=== PATIENT | male | born 1960 | race Caucasian/White ===

== ENCOUNTER → 2016-11-02 | Outpatient (CLI) | payer BC ==
[~2016-11-02] MED LIST: ASP81TEC PO; DIPH1TAB45 PO; LIRA0.6P SQ; LISINOPRIL; METFORMIN; METO100T5 PO; METOPROLOL; NIAC250T17 PO; OMG1KC PO; PRILOSEC; SIMV40TA4 PO; SIMVASTATIN; TAMS0.4C2 PO; VICTOZA
--- OUTSIDE RECORDS SUMMARY | 2016-11-02 13:53 | XMS REPORT ---
Author JOSE D Callejas [facility] eClinicalWorks Address Unknown Phone Unavailable Care Team Providers Care [facility] [employer] Name Role Phone JOSE D NJ CP Unavailable Allergies No Known Allergies Problems Problem Type Condition Code Onset Dates Condition Status Problem Type 2 diabetes mellitus without complication E11.9 Active Problem Essential hypertension I10 Active Problem Diabetic polyneuropathy associated with type 2 diabetes mellitus E11.42 Active Problem Obesity, unspecified obesity severity, unspecified obesity type E66.9 Active Problem Other seasonal allergic rhinitis J30.2 Active Problem Hyperlipidemia, unspecified hyperlipidemia type E78.5 Active Problem Periodic limb movement disorder G47.61 Active Medications Medication Code System Code Instructions Start Date End Date Status Dosage Tamsulosin HCl [facility] [id number] 0.4 MG Orally Once a day 1 capsule 30 minutes after the same meal each day Results No Known Results Summary Purpose eClinicalWorks Submission
== END ==
LOC: RAD 13:51
PROVIDERS: ATTEND Orthopaedic Surgery Orthopaedic Surgery of the Spine
DX: M54.10 Radiculopathy, site unspecified (principal)

== ENCOUNTER 2017-11-04 12:38 | Observation (INO) | payer BC ==
[~2017-11-04] VITALS: Ht 190.5 cm; Wt 122.5 kg
[2017-11-04] VITALS (13 sets, daily range): BP systolic 105–180; BP diastolic 76–101
[2017-11-04] MEDS ORDERED: ASPIRIN 81 MG CHEW (CHILDREN'S ASA) ONE (12:45)
[2017-11-04] MEDS ORDERED: NS IV 1000 ML 1,000 ML ONE (12:48)
[2017-11-04] MEDS ORDERED: NS IV 1000 ML 1,000 ML IV ONE (12:54)
[2017-11-04] MEDS ORDERED: ASPIRIN 325 MG (5 GR) TABLET PO ONE (13:00)
[2017-11-04 13:05] LABS: BASOPHILS % (AUTO) 1 % (0-10); EOSINOPHILS # (AUTO) 0.2 10^3/uL (0.0-0.3); EOSINOPHILS % (AUTO) 3 % (0-10); HEMATOCRIT 48 % (40-54); HEMOGLOBIN 17.2 G/DL (13.3-17.7); LYMPHOCYTES % (AUTO) 24 % (12-44); MEAN CORPUSCULAR HEMOGLOBIN 31 PG (25-34); MEAN CORPUSCULAR HGB CONC 36 G/DL (32-36); MEAN CORPUSCULAR VOLUME 88 FL (80-99); MEAN PLATELET VOLUME 10.9 FL (7.4-10.4); MONOCYTES # (AUTO) 0.7 X 10^3 (0.0-1.0); MONOCYTES % (AUTO) 8 % (0-12); NEUTROPHILS # (AUTO) 5.4 X 10^3 (1.8-7.8); NEUTROPHILS % (AUTO) 65 % (42-75); PLATELET COUNT 174 10^3/uL (130-400); RED BLOOD COUNT 5.49 10^6/uL (4.35-5.85); RED CELL DISTRIBUTION WIDTH 12.5 % (10.0-14.5); WHITE BLOOD COUNT 8.3 10^3/uL (4.3-11.0)
[2017-11-04 13:12] LABS: PROTHROMBIN TIME PATIENT 13.1 SEC (12.2-14.7)
--- NOTE | 2017-11-04 13:16 | ED Chest Pain ---
General Chief Complaint: Chest Pain Stated Complaint: CP Nursing Triage Note: BOBBY STATES THAT HE STARTED HAVING A FLUTTERING FEELING IN HIS CHEST STARTING THIS MORNING AROUND 0800. HE HAS HAD A HEART CATH IN THE PAST THAT WAS NEGATIVE. HE HAD AN EPISODE OF LIGHTHEADEDNESS WELL. Nursing Sepsis Screen: No Definite Risk Source: patient Exam Limitations: no limitations History of Present Illness Time seen by provider: 12:41 Initial Comments Here with report of having fluttering feeling and discomfort in his chest today while at work. This started around 8 o'clock. He had another episode later and actually almost passed out. He was able to get to that without passing out but was not feeling well and elected to come to the emergency department appropriately. Denies nausea or vomiting. Denies diaphoresis. Reports that his blood sugar has been reasonably under control. He has not checked his blood sugar today. Timing/Duration: 4-6 hours Severity/Quality: moderate, other (flutter and abnormal feeling.) Location: central Radiation: no radiation Activities at Onset: none Prior CP/Workup: echocardiography, stress test ASA po RIGHT OF WAY BUYER: No NTG SL RIGHT OF WAY BUYER: No Associated Symptoms: No abdominal pain, No back pain, No fever/chills, No nausea/vomiting, shortness of breath, weakness Allergies and Home Medications Allergies Coded Allergies: No Known Drug Allergies (Unverified , 11/22/10) Home Medications Aspirin 81 Mg Tabec, 81 MG PO DAILY, (Reported) Liraglutide 0.6 Mg/0.1 Ml Pen.injctr, 1.8 MG SQ DAILY, (Reported) Metoprolol Succinate 100 Mg Tab.sr.24h, 25 MG PO DAILY, (Reported) Niacin 250 Mg Tablet, 250 MG PO DAILY, (Reported) [place] 3 Polyunsat Fatty Acids 1,000 Mg Cap, 1,000 MG PO DAILY, (Reported) Simvastatin 40 Mg Tablet, 40 MG PO DAILY, (Reported) Tamsulosin Hcl 0.4 Mg Cap.sr.24h, 0.4 MG PO DAILY, (Reported) [Metformin] , 1,000 MG DAILY, (Reported) Hold until 07/16/12 Review of Systems Constitutional: see HPI, No chills, No fever EENTM: No Symptoms Reported Respiratory: No Symptoms Reported Cardiovascular: See HPI, Chest Pain, Irregular Heart Rate, Palpitations Gastrointestinal: Denies Abdominal Pain, Denies Diarrhea, Denies Nausea, Denies Vomiting Genitourinary: No Symptoms Reported Musculoskeletal: no symptoms reported Skin: no symptoms reported All Other Systems Reviewed Negative Unless Noted: Yes Past Mxuftpp-Qzlxik-Hgzmet Hx Patient Social History Alcohol Use: Denies Use Recreational Drug Use: No Smoking Status: Never a Smoker 2nd Hand Smoke Exposure: No Recent Foreign Travel: No Contact w/Someone Who Travel: No Recent Infectious Disease Expo: No Recent Hopitalizations: No Immunizations Up To Date Date of Influenza Vaccine: Jul 28, 2017 Seasonal Allergies Seasonal Allergies: No Surgeries History of Surgeries: Yes (appendix out ) Respiratory History of Respiratory Disorde: No Cardiovascular History of Cardiac Disorders: Yes Neurological History of Neurological Disord: No Reproductive System Hx Reproductive Disorders: No Genitourinary History of Genitourinary Disor: No Gastrointestinal History of Gastrointestinal Di: No Musculoskeletal History of Musculoskeletal Dis: Yes Endocrine History of Endocrine Disorders: Yes Psychosocial History of Psychiatric Problem: No Integumentary History of Skin or Integumenta: No Blood Transfusions History of Blood Disorders: No Reviewed Nursing Assessment Reviewed/Agree w Nursing PMH: Yes Family Medical History Significant Family History: No Pertinent Family Hx Physical Exam Vital Signs Vital Sign - Last 12Hours 11/04/17 11/04/17 12:40 12:41 Temp 97.8 Pulse 90 Resp 18 B/P (MAP) 155/101 (119) Pulse Ox 95 O2 Delivery Room Air O2 Flow Rate 2.0 Capillary Refill : Less Than 3 Seconds General Appearance: No Apparent Distress, WD/WN HEENT: PERRL/EOMI, Pharynx Normal Neck: Non Tender, Supple Respiratory: Lungs Clear, Normal Breath Sounds Cardiovascular: Regular Rate, Rhythm, No Murmur Gastrointestinal: Non Tender, Soft Extremity: Normal Inspection, Normal Range of Motion Neurologic/Psychiatric: Alert, Oriented x3 Skin: Normal Color, Warm/Dry Progress/Results/Core Measures Results/Orders Lab Results Laboratory Tests Test 11/04/17 12:45 11/04/17 12:49 Range/Units White Blood Count 8.3 4.3-11.0 10^3/uL Red Blood Count 5.49 4.35-5.85 10^6/uL Hemoglobin 17.2 13.3-17.7 G/DL Hematocrit 48 40-54 % Mean Corpuscular Volume 88 80-99 FL Mean Corpuscular Hemoglobin 31 25-34 PG Mean Corpuscular Hemoglobin Concent 36 32-36 G/DL Red Cell Distribution Width 12.5 10.0-14.5 % Platelet Count 174 130-400 10^3/uL Mean Platelet Volume 10.9 H 7.4-10.4 FL Neutrophils (%) (Auto) 65 42-75 % Lymphocytes (%) (Auto) 24 12-44 % Monocytes (%) (Auto) 8 0-12 % Eosinophils (%) (Auto) 3 0-10 % Basophils (%) (Auto) 1 0-10 % Neutrophils # (Auto) 5.4 1.8-7.8 X 10^3 Lymphocytes # (Auto) 2.0 1.0-4.0 X 10^3 Monocytes # (Auto) 0.7 0.0-1.0 X 10^3 Eosinophils # (Auto) 0.2 0.0-0.3 10^3/uL Basophils # (Auto) 0.0 0.0-0.1 10^3/uL Prothrombin Time 13.1 12.2-14.7 SEC INR Comment 1.0 0.8-1.4 Activated Partial Thromboplast Time 30 24-35 SEC D-Dimer < 0.27 0.00-0.49 UG/ML Sodium Level 136 135-145 MMOL/L Potassium Level 4.2 3.6-5.0 MMOL/L Chloride Level 102 98-107 MMOL/L Carbon Dioxide Level 22 21-32 MMOL/L Anion Gap 12 5-14 MMOL/L Blood Urea Nitrogen 14 7-18 MG/DL Creatinine 1.07 0.60-1.30 MG/DL Estimat Glomerular Filtration Rate > 60 BUN/Creatinine Ratio 13 Glucose Level 226 H 70-105 MG/DL Calcium Level 9.2 8.5-10.1 MG/DL Magnesium Level 2.2 1.8-2.4 MG/DL Total Bilirubin 0.5 0.1-1.0 MG/DL Aspartate Amino Transf (AST/SGOT) 27 5-34 U/L Alanine Aminotransferase (ALT/SGPT) 56 H 0-55 U/L Alkaline Phosphatase 84 40-136 U/L Myoglobin 63.3 10.0-92.0 NG/ML Troponin I < 0.30 <0.30 NG/ML Total Protein 7.9 6.4-8.2 GM/DL Albumin 4.6 H 3.2-4.5 GM/DL Lipase 27 8-78 U/L Glucometer 146 H 70-110 MG/DL My Orders Orders - JABIER NOYOLA MD Aspirin Chewable Tablet (Baby Aspirin Ch (11/04/17 12:45) Ns Iv 1000 Ml (Sodium Chloride 0.9%) (11/04/17 12:48) Cbc With Automated Diff (11/04/17 12:54) Magnesium (11/04/17 12:54) Chest 1 View, Ap/Pa Only (11/04/17 12:54) Ekg Tracing (11/04/17 12:54) Cardiac Profile 1 (11/04/17 12:54) Comprehensive Metabolic Panel (11/04/17 12:54) Myoglobin Serum (11/04/17 12:54) Protime With Inr (11/04/17 12:54) Partial Thromboplastin Time (11/04/17 12:54) O2 (11/04/17 12:54) Monitor-Rhythm Ecg Trace Only (11/04/17 12:54) Lipid Panel (11/05/17 06:00) Aspirin Tablet (Aspirin Tablet) (11/04/17 13:00) Saline Lock/Iv-Start (11/04/17 12:54) Lipase (11/04/17 12:54) Fibrin Degradation Products (11/04/17 12:54) Saline Lock/Iv-Start (11/04/17 12:54) Ns Iv 1000 Ml (Sodium Chloride 0.9%) (11/04/17 12:54) Clopidogrel Tablet (Plavix Tablet) (11/04/17 14:15) Metoprolol Succinate (Xl) Tab (Toprol Xl (11/04/17 14:15) Vital Signs/I&O Vital Sign - Last 12Hours 11/04/17 11/04/17 11/04/17 12:40 12:41 12:42 Temp 97.8 Pulse 90 Resp 18 B/P (MAP) 155/101 (119) Pulse Ox 95 99 O2 Delivery Room Air Nasal Cannula Nasal Cannula O2 Flow Rate 2.0 2.00 Blood Pressure Mean: 119 Progress Note : Progress Note Seen and evaluated. IV, labs, EKG, chest x-ray, ASA 324 mg by mouth ordered. Monitor patient. 1358: Patient is having intermittent periods of this chest flutter ordered not feeling well. I think it would be important to observe him especially given his diabetes history. I did discuss the case with Dr. Carmelita Trent and she accepts patient for admission, observation status. I did discuss the case with Dr. Donis, on-call for cardiology and he says patient for consult. He recommends Toprol 25 mg by mouth of the XL version and Plavix 300 mg by mouth. Findings and concerns discussed with patient and family who agree to plan. Admit observation status. ECG Initial ECG Impression Date: Nov 04, 2017 Initial ECG Impression Time: 12:41 Initial ECG Rate: 91 Initial ECG Rhythm: Normal Sinus Comment Sinus rhythm with normal axis. No evidence of ST elevation HI. T-wave inversion in the lateral leads that is changed from previous of 13 July 2012. Interpreted by me. Diagnostic Imaging Diagonstic Imaging: Xray Plain Films/CT/US/NM/MRI: chest Comments VIA [facility], [facility]. [place], [place] NAME: DASHA SCRUGGS MED REC#: [id number] PT STATUS: REG ER : 1960 PHYSICIAN: JABIER NOYOLA MD ADMIT DATE: 11/04/17/ER Draft Date of Exam:11/04/17 CHEST 1 VIEW, AP/PA ONLY INDICATION: Heart flutter. TIME OF EXAMINATION: 1328 hours. TECHNIQUE/COMPARISON: A portable AP upright view of the chest was obtained with comparison made to the study of 07/11/2012. FINDINGS: The heart size and pulmonary vascularity are within normal limits. The lungs are clear bilaterally. IMPRESSION: Unremarkable chest. Dictated on workstation # [id number] Dict: 11/04/17 1336 Trans: 11/04/17 1340 [id number] Interpreted by: DARWIN TERRAZAS MD Electronically signed by: Departure Communication (Admissions) Time/Spoke to Admitting Phy: 13:58 Time/Spoke to Consulting Phy: 14:14 Impression Impression: Primary Impression: Chest pain Qualified Codes: R07.9 - Chest pain, unspecified Disposition: ADMITTED INPATIENT Condition: Stable Admissions Decision to Admit Reason: Admit from ER (General) Decision to Admit/Date: Nov 04, 2017 Time/Decision to Admit Time: 13:58 Departure-Patient Inst. Referrals: JOSE D NJ DO (PCP/Family) Primary Care Physician JABIER NOYOLA MD Nov 04, 2017 13:16
[2017-11-04 13:23] LABS: ALANINE AMINOTRANSFERASE 56 U/L (0-55); ALBUMIN 4.6 GM/DL (3.2-4.5); ALKALINE PHOSPHATASE 84 U/L (40-136); BILIRUBIN,TOTAL 0.5 MG/DL (0.1-1.0); BUN/CREATININE RATIO 13; CALCIUM 9.2 MG/DL (8.5-10.1); CARBON DIOXIDE 22 MMOL/L (21-32); CHLORIDE 102 MMOL/L (98-107); CREATININE SERUM 1.07 MG/DL (0.60-1.30); GFR ESTIMATED > 60; GLUCOSE 226 MG/DL (70-105); LIPASE 27 U/L (8-78); MAGNESIUM 2.2 MG/DL (1.8-2.4); POTASSIUM 4.2 MMOL/L (3.6-5.0); SODIUM 136 MMOL/L (135-145); TOTAL PROTEIN 7.9 GM/DL (6.4-8.2)
[2017-11-04 13:29] LABS: MYOGLOBIN SERUM 63.3 NG/ML (10.0-92.0)
--- NOTE | 2017-11-04 13:40 | Diagnostic Imaging Report ---
INDICATION: Heart flutter. TIME OF EXAMINATION: 1328 hours. TECHNIQUE/COMPARISON: A portable AP upright view of the chest was obtained with comparison made to the study of 07/11/2012. FINDINGS: The heart size and pulmonary vascularity are within normal limits. The lungs are clear bilaterally. IMPRESSION: Unremarkable chest. Dictated by: Dictated on workstation # [id number]
[2017-11-04] MEDS ORDERED: CLOPIDOGREL 300 MG (PLAVIX) TABLET PO ONE (14:15)
[2017-11-04] MEDS ORDERED: CANA300T PO (14:39)
[2017-11-04] MEDS ORDERED: METF1000 PO (14:39)
[2017-11-04] MEDS ORDERED: METO-333 PO (14:39)
[2017-11-04] MEDS ORDERED: TAMS0.4C2 PO (14:39)
[2017-11-04] MEDS ORDERED: LIRA0.6P3 SC (14:39)
[2017-11-04] MEDS ORDERED: FLUT16SP22 NSEACH (14:39)
[2017-11-04] MEDS ORDERED: GLIM4TAB PO (14:39)
[2017-11-04] MEDS ORDERED: morphine INJ 4 MG/ML 1 ML (VIAL/SYRINGE) IV PRN (15:30)
[2017-11-04] MEDS ORDERED: CATHETER FLUSH 10 ML SYR IV PRN (15:30)
[2017-11-04] MEDS ORDERED: NITROGLYCERIN 0.4 MG SL TABS BTL 25'S SL PRN (15:30)
[2017-11-04] MEDS ORDERED: ASPI-983 PO (15:37)
[2017-11-04] MEDS ORDERED: NIAC1CAP12 PO (15:37)
[2017-11-04] MEDS ORDERED: OMG1KC PO (15:37)
--- NOTE | 2017-11-04 15:39 | Consultation-Cardiology ---
HPI-Cardiology Cardiology Consultation: Date of Consultation 11/04/17 Date of Admission Attending Physician Carmelita Trent MD Admitting Physician Zenobia Coleman DO Consulting Physician Gonzales DONIS MD HPI: Time Seen by Provider: 14:45 Chief Complaint: Chest pain, palpitations, dizziness This is a 57-year-old gentleman who has history of type II diabetes, hypertension, hyperlipidemia, family history of CAD. Father had an NV. Nonsmoker. He presents with an episode of fluttery feeling in the chest with a dull ache as well as near syncopal episode. The chest discomfort is nonradiating. It is substernal. It is mild. There is no exacerbating or relieving factors. He did not have any further near syncope. He denies any episodes of syncope. Denies any shortness of breath, orthopnea or PND. Denies any significant lower extremity swelling. Review of Systems-Cardiology Review of Systems Constitutional: No As described under HPI, No no symptoms reported, No chills, No fever, No lightheadedness, No malaise, No tiredness, No weight loss, No weight gain, No other Eyes: No As described under HPI, No no symptoms reported, No blindness, No blurred vision, No contact lenses, No drainage, No decreased acuity, No foreign body sensation, No glasses, No inflammation, No pain, No photophobia, No previous injury, No shadows, No tunnel vision, No other, No vision change Ears/Nose/Throat: No As described under HPI, No no symptoms reported, No chronic hearing loss, No epistaxis, No ear discharge, No ear pain, No loose teeth, No mouth pain, No mouth swelling, No nasal drainage, No nose pain, No recent hearing loss, No throat pain, No throat swelling, No ulcerations, No other Respiratory: No no symptoms reported, No As described under HPI, No cough, No orthopnea, No shortness of breath, No SOB with excertion, No SOB at rest, No stridor, No wheezing, No other Cardiovascular: chest pain, palpitations, syncope Gastrointestinal: No no symptoms reported, No As described under HPI, No abdomen distended, No abdominal pain, No blood streaked bowels, No constipation , No diarrhea, No difficulty swallowing, No nausea, No poor appetite, No poor fluid intake, No rectal bleeding, No vomiting, No other, No nausea/vomiting/ diarrhea, No stool coloration changes Genitourinary: No no symptoms reported, No As described under HPI, No burning, No dysuria, No discharge, No frequency, No flank pain, No hematuria, No incontinence, No pain, No urgency, No other, No urine frequency changes, No urine coloration changes Musculoskeletal: No no symptoms reported, No As describe under HPI, No back pain, No gout, No joint pain, No joint swelling, No muscle pain, No muscle stiffness, No neck pain, No other Skin: No no symptoms reported, No As described under HPI, No change in color, No change in hair/nails, No dryness, No lesions, No lumps, No rash, No other, No skin related problems, No ulcerations, No rash on exposed areas, No ulcerations on exposed areas Psychiatric/Neurological: No no symptoms reported, No As described under HPI, No anxiety, No depression, No emotional problems, No headache, No numbness, No pre-existing deficit, No seizure, No tingling, No tremors, No weakness, No other , No focal weakness, No syncope Hematologic: No no symptoms reported, No As described under HPI, No anemia, No blood clots, No easy bleeding, No easy bruising, No swollen glands, No other, No bleeding abnormalities All Other Systems Reviewed Negative Unless Noted: Yes IQB-Gjzxsi-Gmhtss Hx Patient Social History Alcohol Use: Denies Use Recreational Drug Use: No Smoking Status: Never a Smoker 2nd Hand Smoke Exposure: No Recent Foreign Travel: No Recent Infectious Disease Expo: No Hospitalization with Isolation: Denies Immunizations Up To Date Date of Influenza Vaccine: Jul 28, 2017 Past Medical History PMH As described under Assessment. Allergies and Home Medications Allergies Coded Allergies: No Known Drug Allergies (Unverified , 11/22/10) Home Medications Aspirin 81 Mg Tablet.dr, 81 MG PO HS, (Reported) Canagliflozin 300 Mg Tablet, 300 MG PO DAILY, (Reported) Fluticasone Propionate 16 Gm [place].susp, 2 SPRAYS NSEACH HS, (Reported) Glimepiride 4 Mg Tablet, 4 MG PO HS, (Reported) Liraglutide 0.6 Mg/0.1 Ml Pen.injctr, 1.8 MG SC DAILY, (Reported) Metformin HCl 1,000 Mg Tablet, 1,000 MG PO 1200,2200, (Reported) Metoprolol Tartrate 25 Mg Tablet, 25 MG PO HS, (Reported) Niacin (Inositol Niacinate) 400 Mg Capsule, 400 MG PO HS, (Reported) [place] 3 Polyunsat Fatty Acids 1,000 Mg Cap, 1,000 MG PO HS, (Reported) Tamsulosin HCl 0.4 Mg Cap.er.24h, 0.8 MG PO HS, (Reported) TAKES 2 (0.4MG) CAPSULES Physical Exam-Cardiology Physical Exam Vital Signs/I&O Vital Sign - Last 12Hours 11/04/17 11/04/17 11/04/17 12:40 12:41 12:42 Temp 97.8 Pulse 90 Resp 18 B/P (MAP) 155/101 (119) Pulse Ox 95 99 O2 Delivery Room Air Nasal Cannula Nasal Cannula O2 Flow Rate 2.0 2.00 Capillary Refill : Less Than 3 Seconds Constitutional: No appears stated age, No AAO x 3, No apparent distress, No PERRL, No well-developed, No well-nourished, No other HEENT: No PERRL, No normal ENT inspection, No TMs normal, No pharynx normal, No scleral icterus (R), No scleral icterus (L), No pale conjunctivae (R), No pale conjunctivae (L), No photophobia, No TM abnormal (R), No TM abnormal (L), No pharyngeal erythema, No tonsillar exudate, No other, No discharge, No EOMI, No hearing is well preserved, No hard of hearing, No oral hygience is good, No ulceration, No xanthelasmas are seen Neck: No non-tender, No full range of motion, No supple, No normal inspection, No carotid bruit, No limited range of motion, No lymphadenopathy (R), No lymphadenopathy (L), No tender lateral, No tender midline, No thyromegaly, No other, No carotid pulses are 2 + bilaterally, No with good upstrokes Respiratory: No accessory muscle use, No respiratory distress, No chest tender , No chest expansion is symmetric, No chest is bilaterally symmetric, No lungs clear to percussion, No lungs clear to auscultation, No crackles, No rhonchi, No rales, No stridor, No wheezing, No pleural rub, No other Cardiovascular: No regular rate-rhythm, No irregularly irregular, No extra beats, No parasternal heave is noted, No JVD, No edema, No bradycardia, No tachycardia, No point of maximal impulse, No cardiac thrills are palpable, No S1 and S2, No gallop/S3, No gallop/S4, No diastolic murmur, No systolic murmur, No friction rub, No click, No other Gastrointestinal: No tender, No soft, No round, No distended, No pulsatile mass , No organomegaly, No guarding, No rebound, No tenderness, No hernia, No mass, No audible bowel sounds, No abnormal bowel sounds, No abdominal bruits, No spleenomegaly, No other Rectal: deferred Extremities: No normal range of motion, No non-tender, No normal inspection, No pedal edema, No calf tenderness, No normal capillary refill, No pelvis stable , No calf tenderness, No inflammation, No pedal edema, No slow capillary refill , No swelling, No other, No abrasion, No clubbing, No cyanosis, No ecchymosis, No laceration, No no lower extremity edema bilateral, No significant edema, No tenderness, No wound Neurologic/Psychiatric: No certified massage therapist II-XII nml as tested, No no motor/sensory deficits, No alert, No normal mood/affect, No oriented x 3, No abnormal cerebellar tests, No abnormal certified massage therapist II-XII, No abnormal gait, No aphasia, No EOM palsy, No facial droop, No motor weakness, No sensory deficit, No depressed affect, No disoriented x 3, No other, No grossly intact, No power is 5/5 both on sides Skin: No normal color, No warm/dry, No cyanosis, No cool, No diaphoresis, No damp, No ecchymosis, No jaundice, No mottled, No pallor, No rash, No tattoos/ piercings, No ulcerations, No rash on exposed areas, No ulcerations on exposed areas, No other Lymphatic: No no adenopathy, No axilla node tender (R), No axilla node tender ( L), No inguinal node tender (R), No inguinal node tender (L), No other Data Review Labs Laboratory Tests 11/04/17 12:45: White Blood Count 8.3, Red Blood Count 5.49, Hemoglobin 17.2, Hematocrit 48, Mean Corpuscular Volume 88, Mean Corpuscular Hemoglobin 31, Mean Corpuscular Hemoglobin Concent 36, Red Cell Distribution Width 12.5, Platelet Count 174, Mean Platelet Volume 10.9H, Neutrophils (%) (Auto) 65, Lymphocytes (%) (Auto) 24 , Monocytes (%) (Auto) 8, Eosinophils (%) (Auto) 3, Basophils (%) (Auto) 1, Neutrophils # (Auto) 5.4, Lymphocytes # (Auto) 2.0, Monocytes # (Auto) 0.7, Eosinophils # (Auto) 0.2, Basophils # (Auto) 0.0, Prothrombin Time 13.1, INR Comment 1.0, Activated Partial Thromboplast Time 30, D-Dimer < 0.27, Sodium Level 136, Potassium Level 4.2, Chloride Level 102, Carbon Dioxide Level 22, Anion Gap 12, Blood Urea Nitrogen 14, Creatinine 1.07, Estimat Glomerular Filtration Rate > 60, BUN/Creatinine Ratio 13, Glucose Level 226H, Calcium Level 9.2, Magnesium Level 2.2, Total Bilirubin 0.5, Aspartate Amino Transf (AST /SGOT) 27, Alanine Aminotransferase (ALT/SGPT) 56H, Alkaline Phosphatase 84, Myoglobin 63.3, Troponin I < 0.30, Total Protein 7.9, Albumin 4.6H, Lipase 27 11/04/17 12:49: Glucometer 146H ECG Impression ECG Initial ECG Rhythm: Normal Sinus Initial ECG Impression: Nonspecific Changes A/P-Cardiology Assessment/Admission Diagnosis 1. Near syncope. 2. Palpitations. 3. Chest discomfort. 4. Diabetes. 5. Hypertension. 6. Hyperlipidemia. Plan 1. Near syncope. Continue telemetry. May require an event monitor before discharge. 2. Palpitations. See number 1. 3. Chest discomfort. Elevated risk factors for significant CAD. We will do serial troponins. EKG did not reveal any significant ST-T wave abnormalities. Plavix 300mg bolus was given. If serial troponins are negative we'll perform pharmacological nuclear stress test tomorrow. If troponin is positive we will perform coronary angiography. Patient understands. We will request an echocardiogram. 4. Diabetes. I spoke about the association of diabetes with elevated risk of CAD. 5. Hypertension. Metoprolol and lisinopril. 6. Hyperlipidemia. Needs lipid profile and will need to start atorvastatin. Thank you for your consultation. Please call me if you have any questions. Eugene Donis MD, FACP, FACC, FSCAI, FHRS, CCDS Interventional Cardiology Cardiac Electrophysiology Vascular Medicine and Endovascular Interventions Clinical Quality Measures AMI/AHF: ASA po Prior to arrival: Gonzales Black MD Nov 04, 2017 15:39
[2017-11-04] MEDS ORDERED: RT-ALBUTEROL SULF 2.5 MG/3 ML PRE-MIX VIAL INH PRN (16:00)
[2017-11-04] MEDS ORDERED: ALFUZOSIN HCL 10 MG TAB (UROXATRAL) PO SCH (18:00)
[2017-11-04] MEDS ORDERED: PATIENT MAY USE OWN MEDS, ALL MC SCH (18:15)
[2017-11-04] MEDS: NS IV 1000 ML 1,000 ML IV SCH (18:27)
[2017-11-04 19:38] LABS: MYOGLOBIN SERUM 53.8 NG/ML (10.0-92.0)
[2017-11-04] MEDS: METFORMIN 1,000 MG TABLET PO SCH (20:20)
[2017-11-04] MEDS ORDERED: FLUTICASONE NASAL SPRAY (FLONASE) 16 GM BTL NS SCH (21:00)
[2017-11-04] MEDS ORDERED: ASPIRIN E.C. 81 MG (ECOTRIN) TAB PO SCH (21:00)
[2017-11-04] MEDS ORDERED: NIACIN ER (NIASPAN) 500 MG TAB PO SCH (21:00)
[2017-11-04] MEDS ORDERED: TAMSULOSIN 0.4 MG CAPSULE PO SCH (21:00)
[2017-11-04] MEDS ORDERED: GLIMEPIRIDE 4 MG (AMARYL) TAB PO SCH (21:00)
[2017-11-04] MEDS ORDERED: FISH OIL 1200 MG PO SCH (21:00)
[2017-11-04] MEDS ORDERED: meTOprolol TARTRATE 25 MG (LOPRESSOR) TABLET PO SCH (21:00)
--- OUTSIDE RECORDS SUMMARY | 2017-11-04 21:28 | XMS REPORT ---
Author Author VAMSI THOMAS Organization [facility] Address [address] [place] [address] Care Team Providers Care Armor Reconnaissance Vehicle Driver Name Role Phone VAMSI THOMAS Unavailable PROBLEMS Type Condition ICD9-CM Code [id number] Code Onset Dates Condition Status SNOMED Code Problem Essential hypertension I10 Active 53490664 Problem Type 2 diabetes mellitus without complication E11.9 Active 54152218 Problem Increased urinary frequency R35.0 Active 720048010 Problem Diabetic polyneuropathy associated with type 2 diabetes mellitus E11.42 Active 14605568 Problem Periodic limb movement disorder G47.61 Active 333502067 Problem Other seasonal allergic rhinitis J30.2 Active 583670981 Problem Obesity, unspecified obesity severity, unspecified obesity type E66.9 Active 583619747 Problem Hyperlipidemia, unspecified hyperlipidemia type E78.5 Active 31181704 ALLERGIES Substance Reaction Event Type Date Status Simvastatin muscle pain Drug Allergy Nov, Active SOCIAL HISTORY Never Assessed PLAN OF CARE Activity Details Follow Up 3 Months with René Reason: VITAL SIGNS Height 73 in 2016-12-08 Weight 285.4 lbs 2016-12-08 Temperature 97.3 degrees Fahrenheit 2016-12-08 Heart Rate 70 bpm 2016-12-08 Respiratory Rate 14 2016-12-08 BMI 37.65 kg/m2 2016-12-08 Blood pressure systolic 138 mmHg 2016-12-08 Blood pressure diastolic 78 mmHg 2016-12-08 MEDICATIONS Medication Instructions Dosage Frequency Start Date End Date Duration Status Glucocard Expression Test - test blood sugar 12h May, Active Trintellix 5 MG Orally Once a day 1 tablet 24h Active Glucocard Expression Monitor w/Device test blood sugar 12h May, Active Tamsulosin HCl 0.4 MG Orally Once a day 2 capsule 30 minutes after the same meal each day 24h 9 Nov, 2017 90 days Active Victoza 18 MG/3ML sq daily INJECT 1.8 MG 24h 30 Active Aspirin Adult Low Strength 81 MG Orally Once a day 1 tablet 24h Active Prilosec OTC 20 MG Orally Once a day 1 tablet 24h Active Glimepiride 4 MG TAKE ONE TABLET BY MOUTH DAILY 30 Active Metoprolol Tartrate 25 MG Orally Once a day 1 TABLET BY ORAL ROUTE 1 TIME PER DAY AT BEDTIME (NO NOT CRUSH OR CHEW) 24h 90 Active Fish Oil 1000 MG Orally Once a day 1 capsule 24h Active Fluticasone Propionate 50 MCG/ACT USE TWO SPRAYS IN EACH NOSTRIL DAILY 30 Active Metformin HCl 1000 MG TAKE ONE TABLET BY MOUTH TWICE DAILY WITH MEALS 30 Active RESULTS Name Result Date Reference Range A1C (IN HOUSE) 2016-12-08 A1C IN HOUSE 8.3 4.3 - 5.6 % Previous A1c 8.0 Lot [id number] Exp date 08/2018 PROCEDURES Procedure Date Ordered Result Body Site GLYCATED HEMOGLOBIN TEST Dec 08, 2016 IMMUNIZATIONS No Known Immunizations MEDICAL (GENERAL) HISTORY Type Description Date Medical History hypertension Medical History hyperlipidemia Medical History coronary artery disease Medical History type II diabetes-dx'd 04/2010 Medical History benign prostatic hyperplasia (BPH) Medical History anhedonia s/p of spouse Surgical History appendectomy Surgical History Septum Repair
--- OUTSIDE RECORDS SUMMARY | 2017-11-04 21:28 | XMS REPORT ---
Author Author JOSE D [place] [facility] Address [address] [place] [address] Care Team Providers Care Document Image Technician Name Role Phone JOSE D [place] Unavailable PROBLEMS Type Condition ICD9-CM Code [id number] Code Onset Dates Condition Status SNOMED Code Problem Obesity, unspecified obesity severity, unspecified obesity type E66.9 Active 746074083 Problem Other seasonal allergic rhinitis J30.2 Active 516281199 Problem Increased urinary frequency R35.0 Active 436390101 Problem Diabetic polyneuropathy associated with type 2 diabetes mellitus E11.42 Active 74522631 Problem Hyperlipidemia, unspecified hyperlipidemia type E78.5 Active 10351889 Problem Periodic limb movement disorder G47.61 Active 821652388 Problem Type 2 diabetes mellitus without complication E11.9 Active 94575357 Problem Essential hypertension I10 Active 91699012 ALLERGIES Unknown Allergies SOCIAL HISTORY No smoking Hx information available PLAN OF CARE VITAL SIGNS MEDICATIONS Medication Instructions Dosage Frequency Start Date End Date Duration Status Fluticasone Propionate 50 MCG/ACT USE TWO SPRAYS IN EACH NOSTRIL DAILY 30 Active RESULTS No Results PROCEDURES No Known procedures IMMUNIZATIONS No Known Immunizations
--- OUTSIDE RECORDS SUMMARY | 2017-11-04 21:28 | XMS REPORT ---
Author Author VAMSI THOMAS Organization [facility] Address [address] [place] [address] Care Team Providers Care Quality Process Auditor Name Role Phone VAMSI THOMAS Unavailable PROBLEMS Type Condition ICD9-CM Code [id number] Code Onset Dates Condition Status SNOMED Code Problem Essential hypertension I10 Active 54942805 Problem Type 2 diabetes mellitus without complication E11.9 Active 55079811 Problem Increased urinary frequency R35.0 Active 453488424 Problem Diabetic polyneuropathy associated with type 2 diabetes mellitus E11.42 Active 39113720 Problem Periodic limb movement disorder G47.61 Active 736577964 Problem Other seasonal allergic rhinitis J30.2 Active 716120150 Problem Obesity, unspecified obesity severity, unspecified obesity type E66.9 Active 120698363 Problem Hyperlipidemia, unspecified hyperlipidemia type E78.5 Active 47200240 ALLERGIES No Information SOCIAL HISTORY Never Assessed PLAN OF CARE VITAL SIGNS MEDICATIONS Medication Instructions Dosage Frequency Start Date End Date Duration Status Invokana 100 mg Orally Once a day 1 tablet 24h February, Active RESULTS No Results PROCEDURES No Known procedures IMMUNIZATIONS No Known Immunizations MEDICAL (GENERAL) HISTORY Type Description Date Medical History hypertension Medical History hyperlipidemia Medical History coronary artery disease Medical History type II diabetes-dx'd 04/2010 Medical History benign prostatic hyperplasia (BPH) Medical History anhedonia s/p of spouse Surgical History appendectomy Surgical History Septum Repair
--- OUTSIDE RECORDS SUMMARY | 2017-11-04 21:28 | XMS REPORT ---
Author Author ANALISA KENDALL [facility] eClinicalWorks Address Unknown Phone Unavailable Care Team Providers Care Bee Robber Name Role Phone ANALISA KENDALL CP Unavailable Allergies No Known Allergies Problems Problem Type Condition Code Onset Dates Condition Status Assessment Encounter for immunization Z23 Active Problem Type 2 diabetes mellitus without complication E11.9 Active Problem Essential hypertension I10 Active Problem Diabetic polyneuropathy associated with type 2 diabetes mellitus E11.42 Active Problem Obesity, unspecified obesity severity, unspecified obesity type E66.9 Active Problem Other seasonal allergic rhinitis J30.2 Active Problem Hyperlipidemia, unspecified hyperlipidemia type E78.5 Active Problem Periodic limb movement disorder G47.61 Active Medications No Known Medications Procedures Procedure Coding System Code Date SINGLE IMMUNIZATION ADMIN CPT-4 39787 Jul 27, 2016 FLUARIX QUAD P-FREE 3 AND UP .50 2015 CPT-4 65699 Jul 27, 2016 Results No Known Results Immunizations Vaccine Administration Date FLUARIX QUAD P-FREE 3 AND UP .50 2015Jul 27, 2016 Summary Purpose eClinicalWorks Submission
--- OUTSIDE RECORDS SUMMARY | 2017-11-04 21:28 | XMS REPORT ---
Author Author JOSE D NJ [facility] Address Unknown Phone Unavailable Care Team Providers Care Miniature Set Constructor Name Role Phone JOSE D [place] CP Unavailable Allergies No Known Allergies Problems Problem Type Condition Code Onset Dates Condition Status Problem Essential hypertension I10 Active Problem Hyperlipidemia, unspecified hyperlipidemia type E78.5 Active Problem Type 2 diabetes mellitus without complication E11.9 Active Problem Other seasonal allergic rhinitis J30.2 Active Problem Periodic limb movement disorder G47.61 Active Problem Obesity, unspecified obesity severity, unspecified obesity type E66.9 Active Medications Medication Code System Code Instructions Start Date End Date Status Dosage Glucocard Expression Test [facility] 8317-692826 - 2 times a day May 28, 2016 test blood sugar Glucocard Expression Monitor [facility] 8317-166761 w/Device 2 times a day May test blood sugar Results No Known Results Summary Purpose eClinicalWorks Submission
--- OUTSIDE RECORDS SUMMARY | 2017-11-04 21:28 | XMS REPORT ---
Author JOSE D Callejas [facility] e[employer] Address Unknown Phone Unavailable Care Team Providers Care Geosciences Professor Name Role Phone JOSE D [place] CP [...] Date End Date Status Dosage Tamsulosin HCl [facility] 33225892515 0.4 MG Orally Once a day 1 capsule 30 minutes after the same meal each day Results No Known Results Summary Purpose eClinicalWorks Submission
--- OUTSIDE RECORDS SUMMARY | 2017-11-04 21:28 | XMS REPORT ---
Author Author JOSE D NJ [facility] Address [address] [place] [address] Care Team Providers Care Aviation Electrical Technician Name Role Phone JOSE D [place] Unavailable PROBLEMS Type Condition ICD9-CM Code [id number] Code Onset Dates Condition Status SNOMED Code Problem Essential hypertension I10 Active 98368596 Problem Type 2 diabetes mellitus without complication E11.9 Active 39674511 Problem Increased urinary frequency R35.0 Active 497610842 Problem Diabetic polyneuropathy associated with type 2 diabetes mellitus E11.42 Active 66133808 Problem Periodic limb movement disorder G47.61 Active 300139631 Problem Other seasonal allergic rhinitis J30.2 Active 057420226 Problem Obesity, unspecified obesity severity, unspecified obesity type E66.9 Active 820914953 Problem Hyperlipidemia, unspecified hyperlipidemia type E78.5 Active 26284878 ALLERGIES Unknown Allergies SOCIAL HISTORY No smoking Hx information available PLAN OF CARE VITAL SIGNS MEDICATIONS Unknown Medications RESULTS No Results PROCEDURES No Known procedures IMMUNIZATIONS No Known Immunizations
--- OUTSIDE RECORDS SUMMARY | 2017-11-04 21:28 | XMS REPORT | Clinical Summary ---
Author Author [facility] Address Unknown Phone Unavailable Allergies Not on File Current Medications Not on file Active Problems Not on file Social History Tobacco Use Types Packs/Day Years Used Date Never Assessed Sex Assigned at Date Recorded Not on file Plan of Treatment Health Maintenance Due Date Last Done Comments Hepatitis C Screening 1962 DTaP,Tdap,and Td Vaccines 1981 (1 - Tdap) Colon Cancer Screening 2012 Influenza Vaccine (#1) 2017 Results Not on filefrom Last 3 Months
--- OUTSIDE RECORDS SUMMARY | 2017-11-04 21:29 | XMS REPORT ---
Author JOSE D Callejas [facility] eClinicalWorks Address Unknown Phone Unavailable Care Team Providers Care Orthopedic Shoe Fitter Name Role Phone JOSE D [place] CP Unavailable Allergies, Adverse Reactions, Alerts Substance Reaction Event Type Simvastatin muscle pain Drug Allergy Problems Problem Type Condition Code Onset Dates Condition Status Assessment Essential hypertension I10 Active Assessment Type 2 diabetes mellitus without complication E11.9 Active Assessment Mild episode of recurrent major depressive disorder F33.0 Active Assessment Diabetic polyneuropathy associated with type 2 diabetes mellitus E11.42 Active Assessment Hyperlipidemia, unspecified hyperlipidemia type E78.5 Active Problem [...] Date End Date Status Dosage Glucocard Expression Monitor [facility] 8317-788313 w/Device 2 times a day May test blood sugar Fish Oil [facility] [address]-01 1000 MG Orally Once a day 1 capsule Trintellix [facility] [address]-42 5 MG Orally Once a day 1 tablet Metoprolol Tartrate [facility] 13872403946 25 MG Orally Once a day 1 TABLET BY ORAL ROUTE 1 TIME PER DAY AT BEDTIME (NO NOT CRUSH OR CHEW) Prilosec OTC [facility] 74941-50711 20 MG Orally Once a day 1 tablet BD U/F Mini Pen Needle [facility] 47914294958 0 USE DIRECTED Victoza [facility] 70283777359 18 MG/3ML sq daily INJECT 1.8 MG Metformin HCl [facility] 34708425318 1000 MG TAKE ONE TABLET BY MOUTH TWICE DAILY WITH MEALS Glucocard Expression Test [facility] 8317-705584 - 2 times a day May 28, 2016 test blood sugar Glimepiride [facility] 02952738067 4 MG TAKE ONE TABLET BY MOUTH DAILY Fluticasone Propionate [facility] 91034662370 50 MCG/ACT USE TWO SPRAYS IN EACH NOSTRIL DAILY Niacin [facility] [address]-65 500 mg May 23, 2012 take 1 capsules by Oral route 1 time per day at bedtime Aspirin Adult Low Strength [facility] [address]-59 81 MG Orally Once a day 1 tablet Tamsulosin HCl [facility] 95076636832 0.4 MG Orally Once a day 1 capsule 30 minutes after the same meal each day Procedures Procedure Coding System Code Date COMPREHEN METABOLIC PANEL CPT-4 35568 Aug 03, 2016 ASSAY THYROID STIM HORMONE CPT-4 10462 Aug 03, 2016 GLYCATED HEMOGLOBIN TEST CPT-4 95775 Aug 03, 2016 LIPID PANEL CPT-4 65170 Aug 03, 2016 COMPLETE CBC W/AUTO DIFF WBC CPT-4 05473 Aug 03, 2016 Office Visit, Est Pt., Level 4 CPT-4 34817 Aug 03, 2016 VENIPUNCT, ROUTINE* CPT-4 56130 Aug 03, 2016 Vital Signs Date/Time: Aug 03, 2016 Cardiac Monitoring Heart Rate 86 bpm Weight 287.2 lbs Height 73 in BMI 37.89 Index Blood Pressure Diastolic 83 mmHg Blood Pressure Systolic 132 mmHg Results Name Result Date Reference Range Unit Abnormality Flag ROUTINE VENIPUNCTURE A1C (IN HOUSE) ----Exp date [id number] ----Previous A1c 7.0 20160803 ----Lot [id number] ----A1C IN HOUSE 8.0 [id number] 4.3 - 5.6 % Summary Purpose eClinicalWorks Submission
--- OUTSIDE RECORDS SUMMARY | 2017-11-04 21:30 | XMS REPORT | Continuity of Care Document ---
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 8-78 Capillary blood glucose measurement by glucometer (mass/volume) - 11/04/17 12: 49 Capillary blood glucose measurement by glucometer (mass/volume) 146 mg/dL 70-110 Serum or plasma troponin i.cardiac measurement (mass/volume) - 11/04/17 19:00 Serum or plasma troponin i.cardiac measurement (mass/volume) < ng/ mL <0.30 Myoglobin, serum - 11/04/17 19:00 Myoglobin, serum 53.8 ng/mL 10.0-92.0 Encounters ACCT No. Visit Date/Time Discharge Status Pt. Type Provider Facility Loc./Unit Complaint [id number] 11/02/2016 13:51:00 11/02/2016 23:59:59 CLS Outpatient ARIELLA DE JESUS MD [facility] RAD RADIOCULOPATHY [id number] 01/24/2014 21:06:00 01/25/2014 06:15:00 DIS Outpatient JOSE D NJ DO [facility] SLEEP HTN,EXCESSIVE DAYTIME SLEEPINESS [id number] 11/04/2017 13:05:00 Document Registration [id number] 07/11/2012 08:33:00 Document Registration [id number] 11/22/2010 05:37:00 Document Registration [id number] 07/04/2010 10:56:00 Document Registration [id number] 07/02/2010 08:08:00 Document Registration [id number] 11/05/2014 10:49:00 11/05/2014 23:59:59 CLS Outpatient NJ DOJOSE D [id number] 11/02/2014 09:04:00 11/02/2014 23:59:59 CLS Outpatient NJ DOJOSE D [id number] 10/01/2014 15:17:00 10/01/2014 23:59:59 CLS Outpatient NJ DOJOSE D [id number] 08/10/2014 14:17:00 08/10/2014 23:59:59 CLS Outpatient ANALISA KENDALL APRN [id number] 03/26/2014 09:34:00 03/26/2014 23:59:59 CLS Outpatient NJ DOJOSE D [id number] 11/22/2013 10:11:00 11/22/2013 23:59:59 CLS Outpatient NJ DOJOSE D [id number] 11/21/2013 07:53:00 11/21/2013 23:59:59 CLS Outpatient NJ DOJOSE D [id number] 08/29/2013 09:29:00 08/29/2013 23:59:59 CLS Outpatient ANALISA KENDALL APRN [id number] 08/11/2013 14:48:00 08/11/2013 23:59:59 CLS Outpatient ANALISA KENDALL APRN [id number] 07/26/2013 09:38:00 07/26/2013 23:59:59 CLS Outpatient NJ DOJOSE D [id number] 10/03/2012 10:02:00 10/03/2012 23:59:59 CLS Outpatient ANALISA KENDALL APRN [id number] 09/29/2012 07:52:00 09/29/2012 23:59:59 CLS Outpatient NJ DO, JOSE D Garber [id number] 08/24/2012 09:50:00 08/24/2012 23:59:59 CLS Outpatient NJ DOJOSE D [id number] 04/04/2013 09:03:00 Document Registration [id number] 02/20/2013 10:58:00 Document Registration
--- OUTSIDE RECORDS SUMMARY | 2017-11-04 21:44 | XMS REPORT | Clinical Summary ---
Author Author [facility] Address Unknown Phone Unavailable Allergies Not on [...]
--- OUTSIDE RECORDS SUMMARY | 2017-11-04 21:45 | XMS REPORT | Continuity of Care Document ---
Author Author [facility] Organization [facility] Address Unknown Phone Unavailable Allergies Active Description Code Type Severity Reaction Onset Reported/Identified Relationship to Patient Clinical Status Yes No Known Drug Allergies [id number] Drug Allergy Unknown N/A 11/22/2010 Medications There is no data. Problems Date Dx Coded Attending Type Code Diagnosis Diagnosed By 04/30/2010 JOSE D NJ DO 250.02 Diabetes Mellitus Poorly Controlled 04/30/2010 JOSE D NJ DO 401.1 ESSENTIAL HYPERTENSION BENIGN 04/30/2010 JOSE D NJ DO K 787.91 Diarrhea 04/30/2010 RAJOTTE RESEARCH DEVELOPMENT MANAGER, ANALISA A 250.02 Diabetes Mellitus Poorly Controlled 04/30/2010 RAJOTTE RESEARCH DEVELOPMENT MANAGER, ANALISA A 401.1 ESSENTIAL HYPERTENSION BENIGN 04/30/2010 RAJOTTE RESEARCH DEVELOPMENT MANAGER, ANALISA A 787.91 Diarrhea 04/30/2010 250.02 Diabetes Mellitus Poorly Controlled 04/30/2010 401.1 ESSENTIAL HYPERTENSION BENIGN 04/30/2010 787.91 Diarrhea 04/30/2010 250.02 Diabetes Mellitus Poorly Controlled 04/30/2010 401.1 ESSENTIAL HYPERTENSION BENIGN 04/30/2010 787.91 Diarrhea 04/30/2010 JOSE D NJ DO K 250.02 Diabetes Mellitus Poorly Controlled 04/30/2010 JOSE D NJ DO 401.1 ESSENTIAL HYPERTENSION BENIGN 04/30/2010 JOSE D NJ DO K 787.91 Diarrhea 04/30/2010 RAJOTTE RESEARCH DEVELOPMENT MANAGER, ANALISA A 250.02 Diabetes Mellitus Poorly Controlled 04/30/2010 RAJOTTE RESEARCH DEVELOPMENT MANAGER, ANALISA A 401.1 ESSENTIAL HYPERTENSION BENIGN 04/30/2010 RAJOTTE RESEARCH DEVELOPMENT MANAGER, ANALISA A 787.91 Diarrhea 04/30/2010 RAJOTTE RESEARCH DEVELOPMENT MANAGER, ANALISA A 250.02 Diabetes Mellitus Poorly Controlled 04/30/2010 RAJOTTE RESEARCH DEVELOPMENT MANAGER, ANALISA A 401.1 ESSENTIAL HYPERTENSION BENIGN 04/30/2010 RAJOTTE RESEARCH DEVELOPMENT MANAGER, ANALISA A 787.91 Diarrhea 04/30/2010 NJ DO, [...] JOSE D K 787.91 Diarrhea 04/30/2010 ENOCH RESEARCH DEVELOPMENT MANAGER, ANALISA A 250.02 Diabetes Mellitus Poorly Controlled 04/30/2010 ENOCH CARVER ANALISA A 401.1 ESSENTIAL HYPERTENSION BENIGN 04/30/2010 RAJSHREEE RESEARCH DEVELOPMENT MANAGER, ANALISA A 787.91 Diarrhea 04/30/2010 NJ DO, [...] CARVER ANALISA A 272.4 DYSLIPIDEMIA 05/14/2010 RAJOTTE RESEARCH DEVELOPMENT MANAGER, ANALISA A 272.4 DYSLIPIDEMIA 05/14/2010 NJ DO, JOSE D K 272.4 DYSLIPIDEMIA 05/14/2010 NJ DO, JOSE D K 272.4 DYSLIPIDEMIA 05/14/2010 NJ DO, JOSE D K 272.4 DYSLIPIDEMIA 05/14/2010 NJ DO, JOSE D K 272.4 DYSLIPIDEMIA 05/14/2010 ENOCH RESEARCH DEVELOPMENT MANAGER, ANALISA A 272.4 DYSLIPIDEMIA 05/14/2010 NJ DO, [...] K 250.00 DIABETES MELLITUS TYPE 2 05/15/2010 NEOCH CARVER, ANALISA A 250.00 DIABETES MELLITUS TYPE [...] CARVER ANALISA A 414.01 CAD 06/25/2010 RAJOTTE RESEARCH DEVELOPMENT MANAGER, ANALISA A 414.01 CAD 06/25/2010 NJ DO, [...] V58.69 taking high-risk medication 09/24/2010 NJ DO, JSOE D K V58.69 taking high-risk medication 09/24/2010 NJ DO, JOSE D K V58.69 taking high-risk medication 11/22/2010 Ot 276.51 DEHYDRATION 11/22/2010 Ot 787.91 DIARRHEA 09/22/2011 NJ DO JOSE D K 461.9 Sinusitis Acute 09/22/2011 NJ DO, JOSE D K 788.64 delays in starting urination (hesitancy) 09/22/2011 NJ DO, JOSE D K V76.44 Psa 09/22/2011 RAJOTTE RESEARCH DEVELOPMENT MANAGER, ANALISA A 461.9 Sinusitis Acute 09/22/2011 RAJOTTE RESEARCH DEVELOPMENT MANAGER, ANALISA A 788.64 delays in starting urination (hesitancy) 09/22/2011 RAJOTTE RESEARCH DEVELOPMENT MANAGER, ANALISA A V76.44 Psa 09/22/2011 461.9 Sinusitis Acute 09/22/2011 788.64 delays in starting urination (hesitancy) 09/22/2011 V76.44 Psa 09/22/2011 461.9 Sinusitis Acute 09/22/2011 788.64 delays in starting urination (hesitancy) 09/22/2011 V76.44 Psa 09/22/2011 NJ DO, JOSE D K 461.9 Sinusitis Acute 09/22/2011 NJ DO, JOSE D K 788.64 delays in starting urination (hesitancy) 09/22/2011 NJ DO, JOSE D K V76.44 Psa 09/22/2011 RAJOTTE RESEARCH DEVELOPMENT MANAGER, ANALISA A 461.9 Sinusitis Acute 09/22/2011 RAJOTTE RESEARCH DEVELOPMENT MANAGER, ANALISA A 788.64 delays in starting urination (hesitancy) 09/22/2011 RAJOTTE RESEARCH DEVELOPMENT MANAGER, ANALISA A V76.44 Psa 09/22/2011 RAJOTTE RESEARCH DEVELOPMENT MANAGER, ANALISA A 461.9 Sinusitis Acute 09/22/2011 RAJOTTE RESEARCH DEVELOPMENT MANAGER, AANLISA A 788.64 delays in starting urination (hesitancy) 09/22/2011 RAJOTTE RESEARCH DEVELOPMENT MANAGER, ANALISA A V76.44 Psa 09/22/2011 NJ DO, [...] JOSE D K V76.44 Psa 09/22/2011 RAJOTTE RESEARCH DEVELOPMENT MANAGER, ANALISA A 461.9 Sinusitis Acute 09/22/2011 RAJOTTE RESEARCH DEVELOPMENT MANAGER, ANALISA A 788.64 delays in starting urination (hesitancy) 09/22/2011 RAJOTTE RESEARCH DEVELOPMENT MANAGER, ANALISA A V76.44 Psa 09/22/2011 NJ DO, [...] K 600.00 BENIGN PROSTATIC HYPERTROPHY 09/28/2011 RAJOTTE RESEARCH DEVELOPMENT MANAGER, ANALISA A 600.00 BENIGN PROSTATIC HYPERTROPHY 09/28/2011 600.00 BENIGN PROSTATIC HYPERTROPHY 09/28/2011 600.00 BENIGN PROSTATIC HYPERTROPHY 09/28/2011 NJ DO, JOSE D K 600.00 BENIGN PROSTATIC HYPERTROPHY 09/28/2011 RAJOTTE RESEARCH DEVELOPMENT MANAGER, ANALISA A 600.00 BENIGN PROSTATIC HYPERTROPHY 09/28/2011 RAJOTTE RESEARCH DEVELOPMENT MANAGER, ANALISA A 600.00 BENIGN PROSTATIC HYPERTROPHY 09/28/2011 [...] D K 239.2 Skin Neoplam 07/04/2012 ROMINAE RESEARCH DEVELOPMENT MANAGER, ANALISA A 239.2 Skin Neoplam 07/04/2012 239.2 [...] D K 729.5 ARM PAIN 08/05/2012 RAJOTTE RESEARCH DEVELOPMENT MANAGER, ANALISA A 729.5 ARM PAIN 08/05/2012 729.5 ARM PAIN 08/05/2012 729.5 ARM PAIN 08/05/2012 NJ DO, JOSE D K 729.5 ARM PAIN 08/05/2012 RAJOTTE RESEARCH DEVELOPMENT MANAGER, ANALISA A 729.5 ARM PAIN 08/05/2012 RAJOTTE RESEARCH DEVELOPMENT MANAGER, ANALISA A 729.5 ARM PAIN 08/05/2012 NJ DO, JOSE D K 729.5 ARM PAIN 08/05/2012 NJ DO, JOSE D K 729.5 ARM PAIN 08/05/2012 NJ DO, JOSE D K 729.5 ARM PAIN 08/05/2012 NJ DO, JOSE D K 729.5 ARM PAIN 08/05/2012 RAJOTTE RESEARCH DEVELOPMENT MANAGER, ANALISA A 729.5 ARM PAIN 08/05/2012 NJ DO, JOSE D K 729.5 ARM PAIN 08/05/2012 NJ DO, JOSE D K 729.5 ARM PAIN 08/05/2012 NJ DO, JOSE D K 729.5 ARM PAIN 08/24/2012 NJ DO, JOSE D K 785.1 PALPITATIONS 08/24/2012 RAJOTTE RESEARCH DEVELOPMENT MANAGER, ANALISA A 785.1 PALPITATIONS 08/24/2012 785.1 PALPITATIONS 08/24/2012 785.1 PALPITATIONS 08/24/2012 NJ DO, JOSE D K 785.1 PALPITATIONS 08/24/2012 RAJOTTE RESEARCH DEVELOPMENT MANAGER, ANALISA A 785.1 PALPITATIONS 08/24/2012 RAJOTTE RESEARCH DEVELOPMENT MANAGER, ANALISA A 785.1 PALPITATIONS 08/24/2012 NJ DO, JOSE D K 785.1 PALPITATIONS 08/24/2012 NJ DO, JOSE D K 785.1 PALPITATIONS 08/24/2012 NJ DO, JOSE D K 785.1 PALPITATIONS 08/24/2012 NJ DO, JOSE D K 785.1 PALPITATIONS 08/24/2012 RAJOTTE RESEARCH DEVELOPMENT MANAGER, ANALISA A 785.1 PALPITATIONS 08/24/2012 NJ DO, JOSE D K 785.1 PALPITATIONS 08/24/2012 NJ DO, JOSE D K 785.1 PALPITATIONS 08/24/2012 NJ DO, JOSE D K 785.1 PALPITATIONS 09/26/2012 NJ DO, JOSE D K 250.02 DIABETES II UNCONTROLLED (UNCOMPLICATED) 09/26/2012 ROMINAE RESEARCH DEVELOPMENT MANAGER, ANALISA A 250.02 DIABETES II UNCONTROLLED (UNCOMPLICATED) 09/26/2012 250.02 DIABETES II UNCONTROLLED (UNCOMPLICATED) 09/26/2012 250.02 DIABETES II UNCONTROLLED (UNCOMPLICATED) 09/26/2012 NJ DO, JOSE D K 250.02 DIABETES II UNCONTROLLED (UNCOMPLICATED) 09/26/2012 RAJSHREEE RESEARCH DEVELOPMENT MANAGER, ANALISA A 250.02 DIABETES II UNCONTROLLED (UNCOMPLICATED) 09/26/2012 RAJOTTE RESEARCH DEVELOPMENT MANAGER, ANALISA A 250.02 DIABETES II UNCONTROLLED (UNCOMPLICATED) 09/26/2012 NJ DO, JOSE D K 250.02 DIABETES II UNCONTROLLED (UNCOMPLICATED) 09/26/2012 NJ DO, JOSE D K 250.02 DIABETES II UNCONTROLLED (UNCOMPLICATED) 09/26/2012 JN DO, JOSE D K 250.02 DIABETES II [...] ANALISA A 466.0 BRONCHITIS, ACUTE 10/03/2012 ROMINAE RESEARCH DEVELOPMENT MANAGER, ANALISA A 786.2 COUGH 10/03/2012 466.0 BRONCHITIS, ACUTE 10/03/2012 786.2 COUGH 10/03/2012 466.0 BRONCHITIS, ACUTE 10/03/2012 786.2 COUGH 10/03/2012 NJ DO, JOSE D K 466.0 BRONCHITIS, ACUTE 10/03/2012 NJ DO, JOSE D K 786.2 COUGH 10/03/2012 RAJOTTE RESEARCH DEVELOPMENT MANAGER, ANALISA A 466.0 BRONCHITIS, ACUTE 10/03/2012 RAJOTTE RESEARCH DEVELOPMENT MANAGER, ANALISA A 786.2 COUGH 10/03/2012 RAJOTTE RESEARCH DEVELOPMENT MANAGER, ANALISA A 466.0 BRONCHITIS, ACUTE 10/03/2012 RAJSHREEE RESEARCH DEVELOPMENT MANAGER, ANALISA A 786.2 COUGH 10/03/2012 NJ DO JOSE D K 466.0 BRONCHITIS, ACUTE 10/03/2012 NJ DO, JOSE D K 786.2 COUGH 10/03/2012 NJ DO, JOSE D K 466.0 BRONCHITIS, ACUTE 10/03/2012 NJ DO, JOSE D K 786.2 COUGH 10/03/2012 NJ DO, JOSE D K 466.0 BRONCHITIS, ACUTE 10/03/2012 NJ DO, JOSE D K 786.2 COUGH 10/03/2012 RAJOTTE RESEARCH DEVELOPMENT MANAGER, ANALISA A 466.0 BRONCHITIS, ACUTE 10/03/2012 RAJOTTE RESEARCH DEVELOPMENT MANAGER, ANALISA A 786.2 COUGH 10/03/2012 NJ DO, [...] JOSE D K 780.79 fatigue 07/26/2013 RAJOTTE RESEARCH DEVELOPMENT MANAGER, ANALISA A 278.00 OBESITY 07/26/2013 RAJOTTE RESEARCH DEVELOPMENT MANAGER, ANALISA A 780.79 fatigue 07/26/2013 RAJOTTE RESEARCH DEVELOPMENT MANAGER, ANALISA A 278.00 OBESITY 07/26/2013 RAJOTTE RESEARCH DEVELOPMENT MANAGER, ANALISA A 780.79 fatigue 07/26/2013 NJ DO, JOSE D K 278.00 OBESITY 07/26/2013 NJ DO, JOSE D K 780.79 fatigue 07/26/2013 NJ DO, JOSE D K 278.00 OBESITY 07/26/2013 NJ DO, JOSE D K 780.79 fatigue 07/26/2013 NJ DO, JOSE D K 278.00 OBESITY 07/26/2013 NJ DO, JOSE D K 780.79 fatigue 07/26/2013 RAJOTTE RESEARCH DEVELOPMENT MANAGER, ANALISA A 278.00 OBESITY 07/26/2013 RAJOTTE RESEARCH DEVELOPMENT MANAGER, ANALISA A 780.79 fatigue 07/26/2013 NJ DO, JOSE D K 278.00 OBESITY 07/26/2013 NJ DO, JOSE D K 780.79 fatigue 07/26/2013 NJ DO, JOSE D K 278.00 OBESITY 07/26/2013 NJ DO, JOSE D K 780.79 fatigue 07/26/2013 NJ DO, JOSE D K 278.00 OBESITY 07/26/2013 NJ DO, JOSE D K 780.79 fatigue 08/11/2013 RAJOTTE RESEARCH DEVELOPMENT MANAGER, ANALISA A V04.81 FLU SHOT 08/11/2013 RAJOTTE RESEARCH DEVELOPMENT MANAGER, ANALISA A V04.81 FLU SHOT 08/11/2013 NJ DO, JOSE D K V04.81 FLU SHOT 08/11/2013 NJ DO, JOSE D K V04.81 FLU SHOT 08/11/2013 NJ DO, JOSE D K V04.81 FLU SHOT 08/11/2013 RAJOTTE RESEARCH DEVELOPMENT MANAGER, ANALISA A V04.81 FLU SHOT 08/11/2013 NJ [...] K 786.09 RESPIRATORY ABNORMALITY OTHER 03/26/2014 RAJOTTE RESEARCH DEVELOPMENT MANAGER, ANALISA A 327.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 03/26/2014 RAJOTTE RESEARCH DEVELOPMENT MANAGER, ANALISA A 786.09 RESPIRATORY ABNORMALITY OTHER 03/26/2014 [...] K 786.09 RESPIRATORY ABNORMALITY OTHER 08/10/2014 RAJOTTE RESEARCH DEVELOPMENT MANAGER, ANALISA A V04.81 FLU SHOT 08/10/2014 NJ DO, JOSE D K V04.81 FLU SHOT 08/10/2014 NJ DO, JOSE D K V04.81 FLU SHOT 08/10/2014 NJ DO, JOSE D K V04.81 FLU SHOT 10/01/2014 JOSE D NJ DO 780.99 ANHEDONIA 10/01/2014 JOSE D NJ DO 780.99 ANHEDONIA 10/01/2014 JOSE D NJ [...] ANGIOCARDIOGRAM 07/13/2012 88.56 CORONAR ARTERIOGR-2 CATH 07/13/2012 44107 A1C (IN-HOUSE) 09/26/2012 11867 MICRO ALBUMIN-IN HOUSE 09/26/2012 53783 MICROALBUMIN 09/27/2012 34879 ROUTINE VENIPUNCTURE 09/29/2012 81726 LIVER PANEL (LFT) 09/29/2012 63320 LIPID PANEL 09/29/2012 93046 NEBULIZER TREATMENT 10/03/2012 05151 OXIMETRY 10/03/2012 J7613 ALBUTEROL UNIT DOSE FORM INHALED 10/03/2012 98144 MICRO ALBUMIN-IN HOUSE 02/20/2013 64523 A1C (IN-HOUSE) 02/20/2013 85325 ROUTINE VENIPUNCTURE 04/04/2013 03284 CMP 04/04/2013 14764 LIPID PANEL 04/04/2013 [id number] GFR CALC (RESULT ONLY) 04/04/2013 23074 SLEEP STUDY 07/26/2013 40332 MICRO ALBUMIN-IN HOUSE 07/26/2013 15453 A1C (IN-HOUSE) 07/26/2013 81637 MICROALBUMIN 07/26/2013 18319 OXIMETRY 09/04/2013 88588 ROUTINE VENIPUNCTURE 11/21/2013 09840 MICRO ALBUMIN-IN HOUSE 11/21/2013 83502 A1C (IN-HOUSE) 11/21/2013 25178 CMP 11/21/2013 07654 LIPID PANEL 11/21/2013 2165642 GFR CALC (RESULT ONLY) 11/21/2013 62706 A1C (IN-HOUSE) 03/26/2014 28158 MICRO ALBUMIN-IN HOUSE 03/26/2014 96744 A1C (IN-HOUSE) 10/01/2014 80231 MICRO ALBUMIN-IN HOUSE 10/01/2014 89010 ROUTINE VENIPUNCTURE 11/02/20149045348 GFR CALC (RESULT ONLY) 11/02/2014 77689 CMP 11/02/2014 89287 LIPID PANEL 11/02/2014 98051 OXIMETRY 11/05/2014 Results Test Result Range Complete [...] Status Pt. Type Provider Facility Loc./Unit Complaint [id number] 11/02/2016 13:51:00 11/02/2016 23:59:59 CLS Outpatient ARIELLA DE JESUS MD [facility] RAD RADIOCULOPATHY [id number] 01/24/2014 21:06:00 01/25/2014 06:15:00 DIS Outpatient JOSE D NJ DO [facility] SLEEP HTN,EXCESSIVE DAYTIME SLEEPINESS [id number] 11/04/2017 13:05:00 Document Registration [id number] 07/11/2012 08:33:00 Document Registration [id number] 11/22/2010 05:37:00 Document Registration [id number] 07/04/2010 10:56:00 Document Registration [id number] 07/02/2010 08:08:00 Document Registration [id number] 11/05/2014 10:49:00 11/05/2014 23:59:59 CLS Outpatient NJ DOJOSE D [id number] 11/02/2014 09:04:00 11/02/2014 23:59:59 CLS Outpatient NJ DOJOSE D [id number] 10/01/2014 15:17:00 10/01/2014 23:59:59 CLS Outpatient NJ DOJOSE D [id number] 08/10/2014 14:17:00 08/10/2014 23:59:59 CLS Outpatient ANALISA KENDALL APRN [id number] 03/26/2014 09:34:00 03/26/2014 23:59:59 CLS Outpatient NJ DOJOSE D [id number] 11/22/2013 10:11:00 11/22/2013 23:59:59 CLS Outpatient NJ DOJOSE D [id number] 11/21/2013 07:53:00 11/21/2013 23:59:59 CLS Outpatient NJ DOJOSE D [id number] 08/29/2013 09:29:00 08/29/2013 23:59:59 CLS Outpatient ANALISA KENDALL APRN [id number] 08/11/2013 14:48:00 08/11/2013 23:59:59 CLS Outpatient ANALISA KENDALL APRN [id number] 07/26/2013 09:38:00 07/26/2013 23:59:59 CLS Outpatient NJ DOJOSE D [id number] 10/03/2012 10:02:00 10/03/2012 23:59:59 CLS Outpatient ANALISA KENDALL APRN [id number] 09/29/2012 07:52:00 09/29/2012 23:59:59 CLS Outpatient NJ DO, JOSE D Garber [id number] 08/24/2012 09:50:00 08/24/2012 23:59:59 CLS Outpatient NJ DOJOSE D [id number] 04/04/2013 09:03:00 Document Registration [id number] 02/20/2013 10:58:00 Document Registration
[2017-11-05 00:34] VITALS: BP 144/70
[2017-11-05 04:17] VITALS: BP 141/82
[2017-11-05 06:36] LABS: BASOPHILS % (AUTO) 1 % (0-10); EOSINOPHILS # (AUTO) 0.2 10^3/uL (0.0-0.3); EOSINOPHILS % (AUTO) 3 % (0-10); HEMATOCRIT 45 % (40-54); HEMOGLOBIN 15.7 G/DL (13.3-17.7); LYMPHOCYTES # (AUTO) 2.2 X 10^3 (1.0-4.0); LYMPHOCYTES % (AUTO) 32 % (12-44); MEAN CORPUSCULAR HEMOGLOBIN 31 PG (25-34); MEAN CORPUSCULAR HGB CONC 35 G/DL (32-36); MEAN CORPUSCULAR VOLUME 88 FL (80-99); MEAN PLATELET VOLUME 10.9 FL (7.4-10.4); MONOCYTES # (AUTO) 0.5 X 10^3 (0.0-1.0); MONOCYTES % (AUTO) 7 % (0-12); NEUTROPHILS # (AUTO) 3.8 X 10^3 (1.8-7.8); NEUTROPHILS % (AUTO) 57 % (42-75); PLATELET COUNT 140 10^3/uL (130-400); RED BLOOD COUNT 5.05 10^6/uL (4.35-5.85); RED CELL DISTRIBUTION WIDTH 12.5 % (10.0-14.5); WHITE BLOOD COUNT 6.8 10^3/uL (4.3-11.0)
[2017-11-05 06:58] LABS: ALANINE AMINOTRANSFERASE 47 U/L (0-55); ALBUMIN 3.8 GM/DL (3.2-4.5); ALKALINE PHOSPHATASE 62 U/L (40-136); BILIRUBIN,TOTAL 0.8 MG/DL (0.1-1.0); BUN/CREATININE RATIO 15; CALCIUM 8.7 MG/DL (8.5-10.1); CARBON DIOXIDE 23 MMOL/L (21-32); CHLORIDE 106 MMOL/L (98-107); CHOLESTEROL 132 MG/DL (< 200); CREATININE SERUM 0.92 MG/DL (0.60-1.30); GFR ESTIMATED > 60; GLUCOSE 150 MG/DL (70-105); HDL CHOLESTEROL 23 MG/DL (40-60); POTASSIUM 4.4 MMOL/L (3.6-5.0); SODIUM 141 MMOL/L (135-145); TOTAL PROTEIN 6.2 GM/DL (6.4-8.2); TRIGLYCERIDES 224 MG/DL (<150); VLDL CHOLESTEROL 45 MG/DL (5-40)
[2017-11-05 08:00] VITALS: BP 134/75
[2017-11-05] MEDS ORDERED: CANAGLIFLOZIN 300 MG PO SCH (09:00)
[2017-11-05] MEDS ORDERED: ASPIRIN E.C. 325 MG (ECOTRIN) TABLET PO SCH (09:00)
[2017-11-05] MEDS ORDERED: LIRAGLUTIDE 6 MG/ML SC SCH (09:00)
--- NOTE | 2017-11-05 09:34 | Cardiology Progress Note ---
Cardiology SOAP Progress Note Subjective: No further chest pain Objective: I&O/Vital Signs Vital Sign - Last 12Hours 11/05/17 11/05/17 11/05/17 11/05/17 00:34 01:00 04:17 07:00 Temp 97.7 98.3 Pulse 74 91 70 62 Resp 16 20 B/P (MAP) 144/70 (94) 141/82 (101) Pulse Ox 95 96 O2 Delivery Room Air Room Air 11/05/17 11/05/17 08:00 08:00 Temp 97.1 Pulse 69 Resp 16 B/P (MAP) 134/75 (94) Pulse Ox 97 95 O2 Delivery Room Air Room Air Intake and Output 11/05/17 00:00 Intake Total 1700 ml Balance 1700 ml Weight (Pounds): 270 Weight (Ounces): 0.0 Weight (Calculated Kilograms): 122.118944 Constitutional: No appears stated age, No AAO x 3, No apparent distress, No PERRL, No well-developed, No well-nourished, No other Respiratory: No accessory muscle use, No respiratory distress, No chest tender , No chest expansion is symmetric, No chest is bilaterally symmetric, No lungs clear to percussion, No lungs clear to auscultation, No crackles, No rhonchi, No rales, No stridor, No wheezing, No pleural rub, No other Cardiovascular: No regular rate-rhythm, No irregularly irregular, No extra beats, No parasternal heave is noted, No JVD, No edema, No bradycardia, No tachycardia, No point of maximal impulse, No cardiac thrills are palpable, No S1 and S2, No gallop/S3, No gallop/S4, No diastolic murmur, No systolic murmur, No friction rub, No click, No other Gastrointestional: No tender, No soft, No round, No distended, No pulsatile mass, No organomegaly, No guarding, No rebound, No tenderness, No hernia, No mass, No audible bowel sounds, No abnormal bowel sounds, No abdominal bruits, No spleenomegaly, No other Extremities: No normal range of motion, No non-tender, No normal inspection, No pedal edema, No calf tenderness, No normal capillary refill, No pelvis stable , No calf tenderness, No inflammation, No pedal edema, No slow capillary refill , No swelling, No other, No abrasion, No clubbing, No cyanosis, No ecchymosis, No laceration, No no lower extremity edema bilateral, No significant edema, No tenderness, No wound Neurologic/Psychiatric: No salvage cutter II-XII nml as tested, No no motor/sensory deficits, No alert, No normal mood/affect, No oriented x 3, No abnormal cerebellar tests, No abnormal salvage cutter II-XII, No abnormal gait, No aphasia, No EOM palsy, No facial droop, No motor weakness, No sensory deficit, No depressed affect, No disoriented x 3, No other, No grossly intact, No power is 5/5 both on sides Skin: No normal color, No warm/dry, No cyanosis, No cool, No diaphoresis, No damp, No ecchymosis, No jaundice, No mottled, No pallor, No rash, No tattoos/ piercings, No ulcerations, No rash on exposed areas, No ulcerations on exposed areas, No other Results/Procedures: Labs Laboratory Tests 11/04/17 12:45: White Blood Count 8.3, Red Blood Count 5.49, Hemoglobin 17.2, Hematocrit 48, Mean Corpuscular Volume 88, Mean Corpuscular Hemoglobin 31, Mean Corpuscular Hemoglobin Concent 36, Red Cell Distribution Width 12.5, Platelet Count 174, Mean Platelet Volume 10.9H, Neutrophils (%) (Auto) 65, Lymphocytes (%) (Auto) 24 , Monocytes (%) (Auto) 8, Eosinophils (%) (Auto) 3, Basophils (%) (Auto) 1, Neutrophils # (Auto) 5.4, Lymphocytes # (Auto) 2.0, Monocytes # (Auto) 0.7, Eosinophils # (Auto) 0.2, Basophils # (Auto) 0.0, Prothrombin Time 13.1, INR Comment 1.0, Activated Partial Thromboplast Time 30, D-Dimer < 0.27, Sodium Level 136, Potassium Level 4.2, Chloride Level 102, Carbon Dioxide Level 22, Anion Gap 12, Blood Urea Nitrogen 14, Creatinine 1.07, Estimat Glomerular Filtration Rate > 60, BUN/Creatinine Ratio 13, Glucose Level 226H, Calcium Level 9.2, Magnesium Level 2.2, Total Bilirubin 0.5, Aspartate Amino Transf (AST /SGOT) 27, Alanine Aminotransferase (ALT/SGPT) 56H, Alkaline Phosphatase 84, Myoglobin 63.3, Troponin I < 0.30, Total Protein 7.9, Albumin 4.6H, Lipase 27 11/04/17 12:49: Glucometer 146H 11/04/17 19:00: Myoglobin 53.8, Troponin I < 0.30 11/04/17 20:54: Glucometer 137H 11/05/17 05:55: White Blood Count 6.8, Red Blood Count 5.05, Hemoglobin 15.7, Hematocrit 45, Mean Corpuscular Volume 88, Mean Corpuscular Hemoglobin 31, Mean Corpuscular Hemoglobin Concent 35, Red Cell Distribution Width 12.5, Platelet Count 140, Mean Platelet Volume 10.9H, Neutrophils (%) (Auto) 57, Lymphocytes (%) (Auto) 32 , Monocytes (%) (Auto) 7, Eosinophils (%) (Auto) 3, Basophils (%) (Auto) 1, Neutrophils # (Auto) 3.8, Lymphocytes # (Auto) 2.2, Monocytes # (Auto) 0.5, Eosinophils # (Auto) 0.2, Basophils # (Auto) 0.0, Sodium Level 141, Potassium Level 4.4, Chloride Level 106, Carbon Dioxide Level 23, Anion Gap 12, Blood Urea Nitrogen 14, Creatinine 0.92, Estimat Glomerular Filtration Rate > 60, BUN/ Creatinine Ratio 15, Glucose Level 150H, Calcium Level 8.7, Total Bilirubin 0.8 , Aspartate Amino Transf (AST/SGOT) 21, Alanine Aminotransferase (ALT/SGPT) 47, Alkaline Phosphatase 62, Total Protein 6.2L, Albumin 3.8, Triglycerides Level 224H, Cholesterol Level 132, LDL Cholesterol Direct 79, VLDL Cholesterol 45H, HDL Cholesterol 23L 11/05/17 06:13: Glucometer 139H 11/05/17 11:52: Glucometer 210H A/P: Assessment/Dx: 1. Near syncope. 2. Palpitations. 3. Chest discomfort. 4. Diabetes. 5. Hypertension. 6. Hyperlipidemia. Plan: 1. Near syncope. Continue telemetry. May require an event monitor before discharge. 2. Palpitations. See number 1. 3. Chest discomfort. Elevated risk factors for significant CAD. Acute coronary syndrome ruled out with negative serial troponins. EKG did not reveal any significant ST-T wave abnormalities. Plavix 300mg bolus was given. Pharmacological stress test is recommended. 4. Diabetes. I spoke about the association of diabetes with elevated risk of CAD. 5. Hypertension. Metoprolol and lisinopril. 6. Hyperlipidemia. Needs lipid profile and will need to start atorvastatin. Thank you for your consultation. Please call me if you have any questions. Eugene Donis MD, FACP, FACC, FSCAI, FHRS, CCDS Interventional Cardiology Cardiac Electrophysiology Vascular Medicine and Endovascular Interventions Clinical Quality Measures AMI/AHF: ASA po Prior to arrival: Gonzales Black MD Nov 05, 2017 09:34
[2017-11-05] MEDS: NS IV 1000 ML 1,000 ML IV SCH (09:44)
[2017-11-05] MEDS ORDERED: inSUlin (REGULAR) HUMAN 1 UNIT/0.01 ML (CHARGE PER UNIT) SC SCH (11:00)
[2017-11-05] MEDS: METFORMIN 1,000 MG TABLET PO SCH ×2 (12:11→14:20)
[2017-11-05] MEDS ORDERED: METO-333 PO (12:19)
--- NOTE | 2017-11-05 12:23 | Discharge Instructions ---
Discharge [facility] Discharge Medications New, Converted or Re-Newed RX: Transmitted to Pharmacy Changed Medications: Metoprolol Tartrate (Metoprolol Tartrate) 25 Mg Tablet 25 MG PO BID, #60 TAB 1 Refill (Changed from: HS; Refills: ) Continued Medications: Aspirin (Aspirin EC) 81 Mg Tablet. 81 MG PO HS, TAB Canagliflozin (Invokana) 300 Mg Tablet 300 MG PO DAILY, TAB Fluticasone Propionate (Fluticasone Propionate) 16 Gm [place].susp 2 SPRAYS NSEACH HS, EA Glimepiride (Glimepiride) 4 Mg Tablet 4 MG PO HS, TAB Liraglutide (Victoza 3-Hayden) 0.6 Mg/0.1 Ml Pen.injctr 1.8 MG SC DAILY, EA Metformin HCl (Metformin HCl) 1,000 Mg Tablet 1000 MG PO 1200,2200, TAB Niacin (Inositol Niacinate) (Niacin Flush Free 500 mg Cap) 400 Mg Capsule 400 MG PO HS, CAP [place] 3 Polyunsat Fatty Acids (Fish Oil 1,000 mg Capsule) 1,000 Mg Cap 1000 MG PO HS, CAP Tamsulosin HCl (Tamsulosin HCl) 0.4 Mg Cap.er.24h 0.8 MG PO HS, CAP TAKES 2 (0.4MG) CAPSULES Patient Instructions Goal/Follow Up Appt: DR THOMSA NOVEMBER 15 AT 10AM Patient Instructions: PLEASE INCREASE YOUR METOPROLOL TO 25MG TWICE A DAY (FROM JUST AT NIGHT). THIS SHOULD HELP WITH YOUR ELEVATED BLOOD PRESSURE WELL YOUR PALPITATIONS. Return to The Hospital For: CHEST PAIN, SHORTNESS OF BREATH, PALPITATIONS OR RACING HEARTBEAT Activity & Diet Discharge Diet: ADA Diet Activity as Tolerated: Yes Orders-Post D/C & Referrals Pneu Vac Indicated: Yes Copy Copies To 1: VAMSI THOMAS MD, JULIE A MD Nov 05, 2017 12:22
[2017-11-05] MEDS ORDERED: REGADENOSON 0.4 MG/5 ML SYR (LEXISCAN) IV ONE ×2 (13:01→13:15)
[2017-11-05 13:15] VITALS: BP 146/87
--- NOTE | 2017-11-05 15:20 | Short Stay Summary ---
History of Present Illness History of Present Illness Reason for visit/HPI Patient presented yesterday to the ED with palpitations and near syncope. He stated that he has had palpitations for many years, but yesterday, he was having them so often that he almost passed out. He was assessed about 5 years ago for them and was told that his blood pressure was too low on his medications , so some of his meds were D/Wenceslao at that time. He has not had any palpitations since last night, but when he was experiencing the palpitations, he noticed that his blood pressure was elevated. He denies abdominal pain, bowel or bladder changes, edema, or chest pain today. He has a PMH of Diabetes Mellitus type II, hypertension, hyperlipidemia, and a family history of CAD. Date of Admission Nov 04, 2017 at 14:15 Date of Discharge Nov 05, 2017 Time Seen by Provider: 09:45 Attending Physician Ron Lou MD Admitting Physician Zenobia Coleman DO Consult Allergies and Home Medications Allergies Coded Allergies: No Known Drug Allergies (Unverified , 11/22/10) Home Medications Aspirin 81 Mg Tablet.dr, 81 MG PO HS, (Reported) Canagliflozin 300 Mg Tablet, 300 MG PO DAILY, (Reported) Fluticasone Propionate 16 Gm [place].susp, 2 SPRAYS NSEACH HS, (Reported) Glimepiride 4 Mg Tablet, 4 MG PO HS, (Reported) Liraglutide 0.6 Mg/0.1 Ml Pen.injctr, 1.8 MG SC DAILY, (Reported) Metformin HCl 1,000 Mg Tablet, 1,000 MG PO 1200,2200, (Reported) Metoprolol Tartrate 25 Mg Tablet, 25 MG PO BID, #60 Ref 1 Prescribed by: RON LOU on 11/05/17 1219 Niacin (Inositol Niacinate) 400 Mg Capsule, 400 MG PO HS, (Reported) [place] 3 Polyunsat Fatty Acids 1,000 Mg Cap, 1,000 MG PO HS, (Reported) Tamsulosin HCl 0.4 Mg Cap.er.24h, 0.8 MG PO HS, (Reported) TAKES 2 (0.4MG) CAPSULES Past Wcsdrbn-Efdjfh-Lrrxvz Hx Patient Social History Marrital Status: Employed/Student: retired Alcohol Use: Denies Use Recreational Drug Use: No Smoking Status: Never a Smoker 2nd Hand Smoke Exposure: No Physical Abuse Screen: No Sexual Abuse: No Recent Foreign Travel: No Contact w/other who traveled: No Recent Hopitalizations: No Recent Infectious Disease Expo: No Immunizations Up To Date Date of Influenza Vaccine: Aug 16, 2017 Seasonal Allergies Seasonal Allergies: No Surgeries Yes (appendix out/nose surgery for septal deviation) Respiratory No Cardiovascular Yes High Cholesterol, Hypertension, Palpitations Neurological No Reproductive System Hx Reproductive Disorders: No Genitourinary No Benign Prostatic Hyperpl Gastrointestinal No Musculoskeletal Yes Endocrine History of Endocrine Disorders: Yes Endocrine Disorders: Diabetes, Insulin dep Are Your Blood Sugars Over 250: No HEENT History of HEENT Disorders: No Cancer No Psychosocial History of Psychiatric Problem: No Integumentary History of Skin or Integumenta: No Blood Transfusions History of Blood Disorders: No Reviewed Nursing Assessment Reviewed/Agree w Nursing PMH: Yes Family Medical History Significant Family History: Heart Disease, Diabetes, Hypertension Family Hx: Diabetes mellitus 19 FATHER FHx: mitral regurgitation G8 SISTER Hypertension 19 FATHER Myocardial infarction 19 FATHER Varicose veins of lower extremity 19 MOTHER Constitutional: No chills, No diaphoresis, No dizziness Respiratory: No orthopnea, No short of breath Cardiovascular: chest pain, Hx of Intervention, palpitations, syncope (Near syncope) Gastrointestinal: No abdominal pain, No constipation, No diarrhea Musculoskeletal: No back pain, No joint pain Physical Exam Vital Signs Vital Sign - Last 12Hours 11/04/17 11/04/17 11/04/17 12:40 12:41 15:56 Temp 97.8 Pulse 90 Resp 18 B/P (MAP) 155/101 (119) Pulse Ox 95 O2 Delivery Room Air O2 Flow Rate 2.0 FiO2 24 Capillary Refill : Less Than 3 Seconds General Appearance: No Apparent Distress, WD/WN, Obese HEENT: Pharynx Normal, Moist Mucous Membranes Neck: Non Tender, Supple, No Thyromegaly Respiratory: Chest Non Tender, Lungs Clear, Normal Breath Sounds, No Accessory Muscle Use, No Respiratory Distress, No Crackles, No Wheezing Cardiovascular: Regular Rate, Rhythm, No Edema, No Murmur, Normal Peripheral Pulses Gastrointestinal: Normal Bowel Sounds, Non Tender, Soft Extremity: Normal Inspection, Non Tender, No Calf Tenderness, No Pedal Edema Neurologic/Psychiatric: Alert, Oriented x3, Normal Mood/Affect Skin: Normal Color, Warm/Dry Clinical Quality Measures AMI/AHF: ASA po Prior to arrival: No DVT/VTE Risk/Contraindication: Risk Factor Score Per Nursin RFS Level Per Nursing on Admit: 1=Low/No VTE PPX Short Stay Diagnosis Discharge Diagnosis-Short Stay Admission Diagnosis: 1. Near syncope 2. Palpitations 3. Chest pain 4. Hypertension 5. Diabetes Mellitus type II 6. Hyperlipidemia 7. Obesity Final Discharge Diagnosis: 1. Near syncope: per cardiology Telemetry worn in the hospital showed nothing of concern. Cardiac stress test ordered and run by cardiology department prior to discharge. May be related to hypertension. 2. Palpitations: per cardiology Cardiac stress test ordered prior to discharge. May be related to hypertension 3. Chest pain: Acute coronary syndrome ruled out with negative troponins. EKG revealed sinus rhythm and new T wave inversion since 2011 EKG, but no acute changes. 4. Hypertension: Modified medication regimen to Metoprolol Tartrate 25 Mg Tablet 25 MG PO BID vs once daily as to control hypertension better. Metoprolol tartrate is taken BID to keep it at steady state. With DM type II, usually administer MARIE-I, but with history of hypotension in the past, continue with metoprolol. Address with PCP René. 5. Diabetes Mellitus type II: Adequate control of diabetes helps to prevent CAD and other cardiac diseases. Blood sugars were less than 150 this morning. Last A1c was unknown, but it was decreased from prior A1c measurements. Follow with [facility]. 6. Hyperlipidemia: On simvastatin at home for hyperlipidemia. Measurements in the hospital showed TAGs 224, VLDL 45, HDL 23. ASCVD showed a 17.5% 10- year risk of a coronary event and a 69% lifetime risk. ASCVD recommended a high intensity statin such as atorvastatin 40-80mg or rosuvastatin 20-40mg. Discuss with Dr. Thomas on follow-up. 7. Obesity: BMI > 30 Recommend weight loss to a BMI < 25. This will reduce the risk of cardic events as well as other diseases. Discuss with Dr. Thomas, PCP. Conclusion Labs Laboratory Tests 11/04/17 19:00: Myoglobin 53.8, Troponin I < 0.30 11/04/17 20:54: Glucometer 137H 11/05/17 05:55: White Blood Count 6.8, Red Blood Count 5.05, Hemoglobin 15.7, Hematocrit 45, Mean Corpuscular Volume 88, Mean Corpuscular Hemoglobin 31, Mean Corpuscular Hemoglobin Concent 35, Red Cell Distribution Width 12.5, Platelet Count 140, Mean Platelet Volume 10.9H, Neutrophils (%) (Auto) 57, Lymphocytes (%) (Auto) 32 , Monocytes (%) (Auto) 7, Eosinophils (%) (Auto) 3, Basophils (%) (Auto) 1, Neutrophils # (Auto) 3.8, Lymphocytes # (Auto) 2.2, Monocytes # (Auto) 0.5, Eosinophils # (Auto) 0.2, Basophils # (Auto) 0.0, Sodium Level 141, Potassium Level 4.4, Chloride Level 106, Carbon Dioxide Level 23, Anion Gap 12, Blood Urea Nitrogen 14, Creatinine 0.92, Estimat Glomerular Filtration Rate > 60, BUN/ Creatinine Ratio 15, Glucose Level 150H, Calcium Level 8.7, Total Bilirubin 0.8 , Aspartate Amino Transf (AST/SGOT) 21, Alanine Aminotransferase (ALT/SGPT) 47, Alkaline Phosphatase 62, Total Protein 6.2L, Albumin 3.8, Triglycerides Level 224H, Cholesterol Level 132, LDL Cholesterol Direct 79, VLDL Cholesterol 45H, HDL Cholesterol 23L 11/05/17 06:13: Glucometer 139H 11/05/17 11:52: Glucometer 210H Conclusion/Plan Pending results from cardiac stress test, patient will be discharged. Cardiology follow-up recommended. Modified hypertension regimen to Metoprolol Tartrate 25 Mg Tablet 25 MG PO BID vs once daily as to control hypertension better. Metoprolol tartrate is taken BID to ensure steady state levels. Discussed adequate control of DM type II to prevent CAD and other cardiac diseases. Recommend discussing with Dr. Thomas, PCP , atorvastatin for hyperlipidemia to decrease risk of acute coronary events due to ASCVD risk. See discharge diagnosis for further information. Follow-up with Dr. Thomas scheduled for 11/15 at 10am. Copy Copies To 1: VAMSI THOMAS MDKATHY INGRAM STUDENT Nov 05, 2017 15:20
--- NOTE | 2017-11-05 20:56 | STRESS TEST ---
DATE OF SERVICE: 11/05/2017 PHARMACOLOGICAL NUCLEAR STRESS TEST REPORT PRIMARY PHYSICIAN: Zenobia Coleman DO. ATTENDING PHYSICIAN: Carmelita Trent MD. ORDERING PHYSICIAN: Dr. Eugene Donis. DIAGNOSES: Chest pain, diabetes. PROCEDURE DETAILS: The patient was brought to the stress lab after informed consent was taken. All the risks and complications were explained in detail. Pharmacological nuclear stress test was performed according to the protocol. A 0.4 mg of IV Lexiscan was given. Low grade exercise was performed. Baseline EKG showed sinus rhythm at 71 BPM with blood pressure 146/87 mmHg. Maximum heart rate was 123 BPM and blood pressure was 188/81 mmHg. The patient did not have any chest pain, EKG changes or arrhythmias during the stress test. A 10.98 mCi of Myoview were given for rest imaging and 32.4 mCi of Myoview were given for stress imaging. TID 0.98, EF 64% with no wall motion abnormalities. There is a small mild reversible apical defect. CONCLUSION: 1. Pharmacological stress test is negative for ischemia. 2. Normal LV function with no wall motion abnormalities. 3. Mild apical defect, which is reversible likely artifact. Clinical correlation is recommended. Job ID: [id number] DocumentID: [id number] Dictated Date: 11/05/2017 14:24:18 Truck Mechanic Date: 11/05/2017 18:07:53 Dictated By: KAILEE DONIS MD
== END 2017-11-05 12:19 | disposition home or self-care (01) ==
LOC: EDUNIT# 12:38 → ER 12:39 → UNDOADMOB 14:15 → 4TH 14:15 → UNDODISOB 11-05 16:31
PROVIDERS: ADMIT Pediatrics; ATTEND Pediatrics
DX: R55 Syncope and collapse (principal); R00.2 Palpitations; R07.89 Other chest pain; I10 Essential (primary) hypertension; E11.9 Type 2 diabetes mellitus without complications; E78.5 Hyperlipidemia, unspecified; Z82.49 Family history of ischemic heart disease and other diseases of the circulatory system; E66.9 Obesity, unspecified; Z79.84 Long term (current) use of oral hypoglycemic drugs; Z68.33 Body mass index [BMI] 33.0-33.9, adult
CPT/HCPCS: 36415; 71045; 78452; 80053; 80061; 82962; 83690; 83735; 83874; 84484; 85025; 85379; 85610; 85730; 93005; 93017; 93041; 93306; 96360; 96361; G0378

== ENCOUNTER 2017-12-06 08:28 | Outpatient (RCR) | payer BC ==
[~2017-12-06 08:28] MED LIST changes: +ASPI-983 PO; +CANA300T PO; +FLUT16SP22 NSEACH; +GLIM4TAB PO; +LIRA0.6P3 SC; +METF10002 PO; +METO-333 PO; +NIAC1CAP12 PO
== END 2018-02-10 | disposition home or self-care (01) ==
LOC: CARD 08:28
PROVIDERS: ATTEND Internal Medicine Interventional Cardiology
DX: R55 Syncope and collapse (principal)
CPT/HCPCS: 93270